=== PATIENT | male | born 1985 | race Caucasian/White ===

== ENCOUNTER 2019-12-15 08:00 | Emergency (ER) | payer BC, SELFPAY ==
[2019-12-15 08:02] VITALS: BP 166/103; PULSE 103; RESP 28; TEMP 37.5; O2SAT 98; BMI 28.7
--- NOTE | 2019-12-15 08:20 | HMH.EDGENADL ---
ED Disposition Clinical Impression: Headache Qualifiers: Headache type: unspecified Headache chronicity pattern: acute headache Intractability: intractable Qualified Code(s): R51 - Headache Fever Qualifiers: Fever type: unspecified Qualified Code(s): R50.9 - Fever, unspecified Right otitis media Qualifiers: Otitis media type: unspecified Qualified Code(s): H66.91 - Otitis media, unspecified, right ear Disposition: Home, Self-Care Condition on Discharge: Fair Instructions: DI for Lumbar Puncture, DI for Fever (Symptom) -- Adult, DI for Headache Additional Instructions: Rest, plenty of fluids. Continue antibiotic as prescribed by your family physician. You have been evaluated for fever and headache. This is likely due to a viral infection. We have not excluded SARS COV. It is very important that you go home and self quarantine for 14 days or until you are asymptomatic for 3 days. Take Tylenol or [place] for pain and fever. Return to the emergency department if you have new or worsening respiratory distress. You have additional questions about COVID testing, you may call the hotline at . Additional instructions for HEADACHE: See your physician as soon as possible for further evaluation. Return immediately if worsening headache, vomiting, problems with vision or speech, numbness or weakness of the extremities, neck pain or stiffness. Additional instructions for CONTROLLED SUBSTANCES: You have been prescribed a medication that is a controlled substance. Controlled substances include pain medications known as opiates and sedative nerve medications known as benzodiazepines. Tramadol, fioricet, and gabapentin are also controlled substances. Some common opiates include: Codeine (such as Tylenol #3) Hydrocodone (Vicodin, Lortab, Lorcet, [place]) Oxycodone (Percocet, Percodan, Oxycodone, Oxy IR) Some common benzodiazepines include: Diazepam (Valium) Lorazepam (Ativan) Alprazolam (Xanax) Clonazepam (Klonopin) Oxazepam (Serax) All of these controlled substances are highly addictive and frequently abused. Misuse can and frequently does lead to addiction as well as overdose and . Medication should be stored in a locked cabinet or other secure storage unit. Do not store the medication in a motor vehicle. Short term supplies, 3 days or less, are prescribed because of the highly addictive nature of the medication. Any of the controlled substance medication NOT taken should be disposed of properly and NOT SAVED. The recommended method of disposing of unused medications is: Place the medicines in a sealable plastic bag. If the medicine is a solid, crush it or add water to dissolve it. Add something undesirable (cat litter, coffee grounds, etc.) Dispose of sealed bag in household trash Do not flush or pour unused medicines down a sink or drain. Controlled substances should not be shared, given away or sold. Because of the addictive nature and frequent abuse, these medications are sometimes stolen. These medications should be kept in a safe place where they cannot be stolen. Do not keep them in your car or purse. Lost or stolen prescriptions for controlled substances WILL NOT BE REFILLED in this emergency department, regardless of whether a police report was filed. Prescriptions: Hydrocod/Acet 5/325 mg [[place] 5/325mg tablet] 1 tab PO Q6HP PRN #10 tab PRN Reason: Pain Transmission Status: Received by [facility] Referrals: Trent Gar [Primary Care Provider] - - Critical Care Critical Care Time: No Attestation: On 12/15/19, the high probability of a clinically significant, sudden or life threatening deterioration of the following system(s) required my full and direct attention, intervention and personal management. The time I documented below is in addition to time spent performing reported procedures but includes the following listed in this critical care notation.
--- NOTE | 2019-12-15 08:30 | CT_ITS ---
PROCEDURE: CT HEAD/BRAIN WO CON CLINICAL INDICATION: headache Headache and fever COMPARISON: No exams were available for comparison TECHNIQUE: Axial images obtained. All CT scans at the facility use one or more dose reduction, viz: automated exposure control, ma/kV adjustment per patient size (including targeted exams where dose is matched to indication, i.e. head), or iterative reconstruction technique. FINDINGS: No midline shift, mass effect, intracranial hemorrhage, hydrocephalus, or extra-axial fluid collection is evident. The calvarium has an unremarkable appearance. No mastoid effusion. No sinus air-fluid level. IMPRESSION: No acute intracranial finding Dictated by: Gerber Nowak MD 12/15/2019 09:54 Electronically signed by Gerber Nowak MD in [place] 12/15/2019 09:54
[2019-12-15 08:38] LABS: Basophils # 0.2 K/mm3 (0-0.2); Basophils % 1.1 % (0.1-2.0); Eosinophils # 0.1 K/mm3 (0.0-0.4); Eosinophils % 0.8 % (0.1-12.0); Hematocrit 48.6 % (42.0-52.0); Hemoglobin 16.9 g/dL (14.1-18.0); Lymphocytes # 1.7 K/mm3 (0.7-4.5); Lymphocytes % 10.7 % (10-50); Mean Corpuscular HGB Conc 34.7 g/dL (31.8-35.4); Mean Corpuscular Hemoglobin 31.5 pg (27.0-31.2); Mean Corpuscular Volume 90.8 fl (80-94); Monocytes # 1.2 K/mm3 (0.1-1.0); Monocytes % 7.5 % (1.7-9.3); Neutrophils # 12.5 K/mm3 (1.8-7.8); Neutrophils % 79.9 % (37.0-80.0); Platelet Count 241 K/mm3 (142-424); Red Blood Count 5.35 M/mm3 (4.60-6.20); Red Cell Distribution Width 12.7 % (11.5-17.5); White Blood Count 15.7 K/mm3 (4.8-10.8)
[2019-12-15 08:40] LABS: Chloride 102 mmol/L (98-107); Potassium 3.9 mmoL/L (3.5-5.1); Sodium 137 mmol/L (136-145)
[2019-12-15 08:43] LABS: Alanine Aminotransferase 42 U/L (12-78); Albumin Level 4.7 g/dl (3.5-5.0); Albumin/Globulin Ratio 1.3 (1.1-1.8); Alkaline Phosphatase 89 U/L (38-126); Anion Gap 16.9 mEq/L (5-15); Aspartate Amino Transferase 35 U/L (17-59); Bilirubin,Total 0.6 mg/dl (0.2-1.3); Blood Urea Nitrogen 17 mg/dl (9-20); Calcium 10.2 mg/dl (8.4-10.2); Carbon Dioxide 22 mmol/L (22.0-30.0); Creatinine Clearance Estimated 121 mL/min (50-200); Estimated Glomerular Filt Rate 77 ml/min (>60); GFR (African American) 93 ML/MIN (>60); Globulin 3.6 g/dL (1.3-3.2); Glucose 123 mg/dl (74-100); Total Protein,Serum 8.3 g/dl (6.3-8.2)
[2019-12-15 08:45] LABS: MANUAL DIFFERENTIAL MANUAL DIFFERENTIAL (MANUAL DIFF)
[2019-12-15 08:52] LABS: Lymphocytes % 12 % (10-50); Monocytes % 6 % (2-9); Neutrophils % 82 % (42-76); Platelet Estimate Normal; RBC Morphology Normal; Total Cells Counted 100
[2019-12-15 09:27] VITALS: BP 113/49; PULSE 82; O2SAT 99
[2019-12-15 10:17] VITALS: BP 145/76; PULSE 68
[2019-12-15 10:43] LABS: Glucose,CSF 62 mg/dl (40-70)
[2019-12-15 12:06] LABS: Appearance,CSF Clear (Clear); Volume,CSF 4 mL
--- NOTE | 2019-12-15 12:19 | XR_ITS ---
PROCEDURE: XR CHEST PORTABLE CLINICAL HISTORY: covid-19 r/o, fever, terrell Cough, fever, headache COMPARISON: No exams were available for comparison FINDINGS: The cardiomediastinal silhouette and pulmonary vascularity are within normal limits. The lungs are clear without infiltrates, suspicious nodules, or pleural effusions. No acute bony abnormalities. IMPRESSION: No acute findings. Dictated by: Gerber Nowak MD 12/15/2019 13:42 Electronically signed by Gerber Nowak MD in [place] 12/15/2019 13:42
[2019-12-15 12:37] LABS: Red Blood Cell,CSF 0 cells/uL (0); White Blood Cell,CSF 4 cells/uL (0-5)
[2019-12-15 12:38] LABS: Mononuclear WBCs,CSF 25 %; Polynuclear WBCs,CSF 75 %
--- NOTE | 2019-12-15 12:55 | PC.NURSE ---
pt states h/a is getting worse
[2019-12-15 13:12] VITALS: BP 122/74; PULSE 78; RESP 16; TEMP 36.6; O2SAT 97
--- NOTE | 2019-12-16 10:30 | PC.NURSE ---
1026 - left message for pt to call [facility]. 1029 - left message with office staff for that pt is negative for COVID 19.
[2019-12-16 10:46] LABS: Covid-19 Nasal PCR Sendout Lex NOT DETECTED
== END 2019-12-15 13:14 | disposition home or self-care (01) ==
PROVIDERS: Emergency Provider Emergency Medicine; PCP Internal Medicine
DX: H66.91 Otitis media, unspecified, right ear (principal)
CPT/HCPCS: 62270; 70450; 71045; 80053; 82945; 84155; 85007; 85025; 87070; 87205; 87275; 87276; 89051; 96365; 96375; 99284; J0595; U0003

== ENCOUNTER → 2020-07-20 10:25 | Outpatient (CLI) | payer BC, SELFPAY ==
--- NOTE | 2020-07-20 10:30 | CT_ITS ---
PROCEDURE: CT ABDOMEN PELVIS W CON CLINICAL INDICATION: Left lower quadrant pain COMPARISON: No exams were available for comparison TECHNIQUE: IV Contrast: 75ML Isovue 370 Oral Contrast None Axial images obtained with sagittal and coronal reformats. All CT scans at the facility use one or more dose reduction, viz: automated exposure control, ma/kV adjustment per patient size (including targeted exams where dose is matched to indication, i.e. head), or iterative reconstruction technique. FINDINGS: LOWER THORAX: No acute finding ABDOMEN & PELVIS: The liver, gallbladder, spleen, adrenal glands, pancreas, kidneys, have an unremarkable appearance. No intestinal obstruction or free air. What appears represent the appendix is upper limits of normal in size. No stranding of the fat or surrounding fluid collections.. There is a mild amount of retained colonic feces. No evidence of diverticulitis. There is a tiny umbilical hernia which contains fat. No acute bony findings. IMPRESSION: 1. No acute finding. 2. Mild amount of retained colonic feces. 3. Appendix is upper limits of normal in size which is of questionable clinical significance. Follow-up exam may confirm stability if clinically warranted. Dictated by: Gerber Nowak MD 07/22/2020 07:11 Gerber Nowak MD in [place] 07/22/2020 07:11
== END ==
PROVIDERS: PCP Internal Medicine; Visit Provider Nurse Practitioner
DX: R10.32 Left lower quadrant pain (principal)
CPT/HCPCS: 74177; Q9967

== ENCOUNTER 2025-06-17 06:54 | Day surgery (SDC) | payer BC, SELFPAY ==
--- NOTE | 2025-06-16 07:14 | P.HP_ITS ---
History of Present Illness *Admission Date: 06/17/25 *History of present illness: Mr. Alvarado is a 39-year-old gentleman who is here for screening colonoscopy. The patient does state that his father had colon polyps in his 40s. The examination is deemed medically necessary for screening colonoscopy. The patient has been seen, interviewed and examined prior to the procedure by both myself and the anesthesia provider. [facility] Disclaimer: The information contained in this section may have been updated after the patient was seen, as this information can be updated by other users. Medical History No significant past medical history Surgical History Status post myringotomy with tube placement of both ears History of tympanoplasty of right ear Family History Mother Breast cancer Social History Smoking Status: Never smoker alcohol intake: never substance use type: denies use current occupational status: other Travel in the last 8 weeks?: Outside the [facility] household members: family housing: house Have you lived/traveled outside [place] in past 30 days?: No Contact w/someone who lives/traveled outside US past 30 days?: No Exposure to someone with infectious disease in past 14 days?: No Do you have a fever (greater than 100.4 F or 38 C)?: No Have you tested positive for COVID-19?: No Exposed to someone with COVID-19 in past 14 days?: No Do you have a sore throat?: No Do you have a cough?: No Do you have any weakness?: No Do you have any diarrhea?: No Are you experiencing any unusual bleeding?: No Do you have any muscle aches/pain?: No Do you have any abdominal pain?: No Are you experiencing loss of taste or smell?: No Other Medical History Have you received the Flu Vaccine for this season: No Have you received the Pneumonia Vaccine: No Review of Systems Review of Systems Review of systems (narrative): Negative *Cardiovascular Comments: Negative *Gastrointestinal Comments: Negative *Genitourinary Comments: Negative *Musculoskeletal Comments: Negative *Neurologic Comments: Negative Meds Home Medications and Allergies Home Medications ?Medication ?Instructions ?Recorded ?Confirmed ?Type No Known Home Medications 06/17/2505/27 History New Prescriptions to Start Prescriptions: Allergies Allergy/AdvReac Type Severity Reaction Status Date / Time No Known Allergies Allergy Verified 06/16/25 14:02 Exam *Routine HEENT Exam Head: Present normocephalic Eye: Present EOMI and PERRL ENT: Present mucous membranes moist *Routine Neck Exam Neck: Present supple *Routine Respiratory Exam Respiratory: Present CTA bilaterally *Routine Cardiovascular Exam Cardiovascular: Present RRR *Routine Abdominal Exam Abdominal: Present soft and normoactive bowel sounds; Absent tenderness *Routine Rectal Exam Rectal:: deferred *Routine Genitalia Exam Genitalia:: deferred *Routine Extremities Exam Extremities: Absent cyanosis, clubbing or edema *Routine Skin Exam Skin: Present warm; Absent rash *Routine Neurological Exam Neurological: Present alert and oriented X3 Assessment and Plan *Assessment and plan (1) Screening for colon cancer: Status: Acute Category: Medical Code(s): Z12.11 - Encounter for screening for malignant neoplasm of colon (2) Family history of colon polyps, unspecified: Status: Acute Category: Medical Code(s): Z83.719 - Family history of colon polyps, unspecified Plan A/P: 1. Screening for colon cancer/family history of colon polyps is the preprocedural diagnosis. The patient will be anesthetized/sedated using MAC sedation. The patient has been seen and examined. Cardiac and lung assessment prior to the examination is stable. Proceed with planned screening colonoscopy.
--- NOTE | 2025-06-17 06:54 | P.PCN_ITS ---
[facility] Procedure Note Date: 06/17/25 Time: 08:39 Procedure Note:: Colonoscopy Procedure Report: Colonoscopy Endoscopist: Yevgeniy Méndez II, MD Referring physician: Valentino Strickland MD Date of Procedure: June 17, 2025 Equipment: Olympus [id number] adult colonoscope Sedation: MAC sedation Indication: Mr. Alvarado is a 39-year-old gentleman who is here for screening colonoscopy. The patient does state that his father had colon polyps in his 40s. The patient reports no abdominal pain, weight loss, change in his bowel habits or rectal bleeding. He reports no family history of colon cancer. The examination is deemed medically necessary for screening colonoscopy. Procedure: Prior to the procedure, a history and physical exam was performed, and patient's medications and allergies were reviewed. The risks, benefits and alternatives of the sedation and procedure were discussed with the patient. All questions were answered and informed consent was obtained. The patient was brought to the procedure room. Patient identification and proposed procedure were verified by the physician and the nurse. The patient was placed in a left lateral decubitus position and the scope was passed under direct vision. Throughout the procedure, the patient's blood pressure, pulse, and oxygen saturations were monitored continuously. The colonoscopy was accomplished without difficulty. The patient tolerated the procedure well. Findings: On digital rectal examination there was normal rectal tone. There were no external hemorrhoids. The prostate was 2+, smooth, soft, symmetric without nodules. The colonoscope was introduced through the anal canal to the rectum and advanced to the cecum. The ileocecal valve and appendiceal orifice were identified. The scope was advanced a short distance into the ileum which appeared grossly normal. The scope was then withdrawn into the colon. The cecum, ascending and transverse colon and mucosa were grossly normal. There were scattered diverticuli throughout the descending and sigmoid colon (LEFT colon). The rectum itself was normal. Upon retroflexion within the rectum there were grade 1-2 internal hemorrhoids. The preparation was excellent throughout with [place] Preparation Score of 9. The cecal time was 12 minutes. Impression: 1. Left-sided diverticulosis 2. Grade 1-2 internal hemorrhoids Plan: The patient will not require screening/surveillance colonoscopy again for 10 years. I would encourage psyllium fiber on a long-term daily maintenance basis.
[2025-06-17 07:10] VITALS: BMI 26.4
[2025-06-17] MEDS: LACTATED RINGERS 1000ML 1,000 ML 50 ML IV (07:12)
[2025-06-17 07:14] VITALS: BP 133/78; PULSE 64; RESP 18; TEMP 36.2; O2SAT 98
--- NOTE | 2025-06-17 07:52 | P.PNANES_ITS ---
[facility] Disclaimer: The information contained in this section may have been updated after the patient was seen, as this information can be updated by other users. Medical History No significant past medical history Surgical History Status post myringotomy with tube placement of both ears History of tympanoplasty of right ear Family History Mother Breast cancer Social History Smoking Status: Never smoker alcohol intake: never substance use type: denies use current occupational status: other Travel in the last 8 weeks?: Outside the [facility] household members: family housing: house Have you lived/traveled outside US in past 30 days?: No Contact w/someone who lives/traveled outside [place] past 30 days?: No Exposure to someone with infectious disease in past 14 days?: No Do you have a fever (greater than 100.4 F or 38 C)?: No Have you tested positive for COVID-19?: No Exposed to someone with COVID-19 in past 14 days?: No Do you have a sore throat?: No Do you have a cough?: No Do you have any weakness?: No Do you have any diarrhea?: No Are you experiencing any unusual bleeding?: No Do you have any muscle aches/pain?: No Do you have any abdominal pain?: No Are you experiencing loss of taste or smell?: No [facility] Anesthesia Checklist Patient Identification Patient Identification: Arm Band Structural Data Admitted From: Home Planned Operative Procedure/s: Colonoscopy Consent for Planned Operative Procedure(s) Verified: Yes Verified Documents: Surgical Consent and History and Physical NPO Status Verified Time NPO: 05:00 (finished prep) Additional verifications Anesthesia Reactions: No Airway Assessment Mallampati Score:: Class II C-Spine Mobility Assessed: Yes TMJ Mobility Assessed: Yes Dentition: Good Dentition Neurological Assessment Level of Consciousness: Awake, Alert and Appropriate Anesthesia Plan Anesthesia Risk discussed: Yes Anesthesia Plan: Verified ASA Class: I Anesthesia Type: MAC
[2025-06-17 08:41] VITALS: BP 99/54; PULSE 65; RESP 16; TEMP 36.2; O2SAT 97
[2025-06-17 08:51] VITALS: BP 123/69; PULSE 63; RESP 16; TEMP 36.2; O2SAT 99
[2025-06-17 09:01] VITALS: BP 116/59; PULSE 62; RESP 16; TEMP 36.2; O2SAT 99
[2025-06-17 09:11] VITALS: BP 130/70; PULSE 64; RESP 18; TEMP 36.2; O2SAT 99
== END 2025-06-17 09:11 | disposition home or self-care (01) ==
PROVIDERS: PCP Family Medicine; Visit Provider Internal Medicine Gastroenterology
PROC: 0DJD8ZZ Inspection of Lower Intestinal Tract, Via Natural or Artificial Opening Endoscopic (ICD-10-PCS; CPT 45378; principal; 2025-06-17 08:30)
DX: Z12.11 Encounter for screening for malignant neoplasm of colon (principal); K57.30 Diverticulosis of large intestine without perforation or abscess without bleeding; K64.0 First degree hemorrhoids; K64.1 Second degree hemorrhoids; Z83.719 Family history of colon polyps, unspecified
CPT/HCPCS: 45378; J2003; J2704; J7120